=== PATIENT | male | born 2000 | race Caucasian/White ===

== ENCOUNTER 2023-03-08 00:04 | Emergency (ER) | payer MEDICAID, SELFPAY ==
[2023-03-08 00:26] VITALS: BP 106/65; PULSE 86; RESP 18; TEMP 36.7; O2SAT 99; BMI 30.2
[2023-03-08 00:59] VITALS: BP 125/61; PULSE 71; RESP 16; TEMP 36.6; O2SAT 99
--- NOTE | 2023-03-08 01:18 | ED_ITS ---
HPI - Skin/Abscess/Foreign Bdy General Chief complaint: Skin/Abscess/Foreign Body Stated complaint: Cyst on buttocks Time Seen by Provider: 03/08/23 01:07 Source: patient Mode of arrival: ambulatory Limitations: no limitations History of Present Illness HPI narrative: 22-year-old male who presents emergency department for evaluation of pain to his right buttocks area. Patient states that he has noticed pain to his right butt cheek for approximately 2 days. The pain is gotten progressively worse to the point where he is having difficulty sitting. He denied systemic symptoms such as fever, chills, fatigue, nausea, or vomiting. The patient states that he had similar pain approximately 1 year prior and had to have an abscess drained at [facility]. Related Data Previous Rx's Medication Instructions Recorded acetaminophen 500 mg tablet 1,000 mg (2 x 500 mg) PO Q6H PRN 03/08/23 (Tylenol Extra Strength) fever or pain #20 tabs ibuprofen 400 mg tablet 400 mg PO TID PRN fever or pain 03/08/23 #30 tabs oxycodone 5 mg tablet 5 mg PO Q6H PRN pain #10 tabs 03/08/23 Allergies Allergy/AdvReac Type Severity Reaction Status Date / Time No Known Allergies Allergy Verified 03/08/23 00:25 Review of Systems Review of Systems: Yes all other systems are reviewed and are negative [facility] Past Medical History [facility] Narrative: Past medical history: None Social History Social History Alcohol intake: current Alcohol intake frequency: a few times a week Smoked in Last 30 Days: Yes Use of substances other than those prescribed or required for medical reasons: Yes Substance Use Type: Marijuana Physical Exam Vital Signs: Vital Signs: Last Vital Signs Temp 97.9 F 03/08/23 00:59 Pulse 71 03/08/23 00:59 Resp 16 03/08/23 00:59 BP 125/61 03/08/23 00:59 Pulse Ox 99 03/08/23 00:59 O2 Del Method Room Air 03/08/23 00:59 BMI result Body Mass Index 30.2 Vital signs were no Exam General: Awake, alert in no distress Skin: Patient has a circular area to his right buttock measuring approximately 3 cm in diameter, this area is warm to touch and indurated, there is no flocculence Psych: Pleasant, cooperative Medical Decision Making Medical Decision Making MDM Narrative: 22-year-old male who presents emergency department for evaluation of pain in the right buttocks area x2 days, patient had similar abscess which required drainage. Patient has had no systemic symptoms. On examination the patient has a 3 cm circular lesion right buttocks area which is indurated and not flocculent. Patient's presentation is consistent with cellulitis versus early abscess. The patient was started on Keflex 500 mg 4 times a day for 7 days, ibuprofen, Tylenol and oxycodone. Patient was given his 1st dose of Keflex 500 mg orally, ibuprofen 400 mg orally and oxycodone 5 mg orally here in the emergency department. He was given printed and verbal instructions and discharged home. Patient was also given a work note. Differential Diagnosis Differential Diagnoses: The differential diagnosis associated with the presentation includes Differential diagnosis includes was not limited to cellulitis, early abscess, abscess Discharge Plan Discharge Clinical Impression: Cellulitis Patient Disposition: Home, Self-Care Instructions: Cellulitis (ED) Additional Instructions: At this time, I believe that you have a skin infection on your right buttocks area but I do not think that you have an abscess that needs to be cut into and drained. Apply heating pad on low, hot hot comp or soak in the bathtub for least 15 minutes 4 to 6 times a day help increase the blood flow to the area of infection and help the healing process. Take Keflex (cephalexin) 500 mg pills, 1 pill 4 times a day for 7 days. Take ibuprofen IV mg pills, 1 pills every 6 hours as needed for pain. Take Tylenol (acetaminophen) 500 mg pills, 2 pills every 4-6 hours as needed for pain. For pain not relieved by ibuprofen or Tylenol take oxycodone 5 mg pills, 1 pill every 4 hours as needed for pain. Do not drive or work while taking this medication since they can cause sleepiness. Oxycodone is a narcotic medication that can be addicting. If you are concerned about addiction you can ask the pharmacist for less pills or do not get this prescription filled. Follow-up with your doctor in 2 days. Please return to the emergency department if your symptoms get worse or if you develop any symptoms that are concerning to you. Please see the work note Prescriptions: New ibuprofen 400 mg tablet 400 mg PO TID PRN (Reason: fever or pain) Qty: 30 0RF oxycodone 5 mg tablet 5 mg PO Q6H PRN (Reason: pain) Qty: 10 0RF Rx Instructions: Patient may request partial refill; Partial Fill upon patient request. acetaminophen [Tylenol Extra Strength] 500 mg tablet 1,000 mg PO Q6H PRN (Reason: fever or pain) Qty: 20 0RF Stand Alone Forms: Work/School Release
[2023-03-08] MEDS: oxyCODONE HCl Immed Release 5 MG TABLET PO (01:39)
[2023-03-08] MEDS: Ibuprofen 400 MG TABLET PO (01:40)
[2023-03-08] MEDS: cephALEXin 500 MG CAPSULE PO (01:40)
[2023-03-08 03:00] VITALS: BP 122/76; PULSE 81; RESP 16; O2SAT 99
== END 2023-03-08 03:25 | disposition home or self-care (01) ==
PROVIDERS: Emergency Provider Emergency Medicine Emergency Medical Services
DX: L03.317 Cellulitis of buttock (principal)
CPT/HCPCS: 99283; 99284

== ENCOUNTER 2023-03-10 15:37 | Emergency (ER) | payer MEDICAID, SELFPAY ==
[2023-03-10 16:04] VITALS: BP 114/69; PULSE 104; RESP 20; TEMP 36.9; O2SAT 98; BMI 30.8
--- NOTE | 2023-03-10 16:04 | ED_ITS ---
HPI - Skin/Abscess/Foreign Bdy General Chief complaint: Skin/Abscess/Foreign Body Stated complaint: seen two days ago cysts Related Data Previous Rx's Medication Instructions Recorded acetaminophen 500 mg tablet 1,000 mg (2 x 500 mg) PO Q6H PRN 03/08/23 (Tylenol Extra Strength) fever or pain #20 tabs cephalexin 500 mg capsule 500 mg PO QID 7 days #28 caps 03/08/23 ibuprofen 400 mg tablet 400 mg PO TID PRN fever or pain 03/08/23 #30 tabs oxycodone 5 mg tablet 5 mg PO Q6H PRN pain #10 tabs 03/08/23 Allergies Allergy/AdvReac Type Severity Reaction Status Date / Time No Known Allergies Allergy Verified 03/08/23 00:25 [facility] Social History Social History Alcohol intake: current Alcohol intake frequency: a few times a week Substance Use Type: Marijuana Physical Exam Vital Signs: Vital Signs: Last Vital Signs Temp 98.4 F 03/10/23 16:04 Pulse 104 H 03/10/23 16:04 Resp 20 03/10/23 16:04 BP 114/69 03/10/23 16:04 Pulse Ox 98 03/10/23 16:04 O2 Del Method Room Air 03/10/23 16:04 BMI result Body Mass Index 30.8 Course Course Course Narrative: RME - 22 yo male who was recently seen here on 03/08 for right buttock cellulitis discharged on Keflex who presents back to the ER for evaluation of worsening pain and swelling. Pain w/ sitting, unable to sleep. Area is now fluctuant w/ worsening erytham and ready to be drained Plan: I&D in C Reevaluation(s) Reevaluation #1: patient left without completing treatment Time: 17:50 Discharge Plan Discharge Clinical Impression: Abscess of skin or subcutaneous tissue Qualifiers: Site of cutaneous abscess: buttock Qualified Code(s): L02.31 - Cutaneous abscess of buttock Patient Disposition: Left W/O Completing Treatment Prescriptions: No Action ibuprofen 400 mg tablet 400 mg PO TID PRN (Reason: fever or pain) Qty: 30 0RF oxycodone 5 mg tablet 5 mg PO Q6H PRN (Reason: pain) Qty: 10 0RF Rx Instructions: Patient may request partial refill; Partial Fill upon patient request. acetaminophen [Tylenol Extra Strength] 500 mg tablet 1,000 mg PO Q6H PRN (Reason: fever or pain) Qty: 20 0RF cephalexin 500 mg capsule 500 mg PO QID 7 Days Qty: 28 0RF
== END 2023-03-10 18:09 | disposition left against medical advice (07) ==
PROVIDERS: Emergency Provider Emergency Medicine
DX: L02.31 Cutaneous abscess of buttock (principal)
CPT/HCPCS: 10060; 99281; 99284

== ENCOUNTER 2023-03-10 18:37 | Emergency (ER) | payer MEDICAID, SELFPAY ==
[2023-03-10 18:56] VITALS: BP 103/65; PULSE 110; RESP 18; TEMP 37.2; O2SAT 97; BMI 25.9
--- NOTE | 2023-03-10 18:56 | ED_ITS ---
HPI - Skin/Abscess/Foreign Bdy General Chief complaint: Skin/Abscess/Foreign Body Stated complaint: cyst on buttock Time Seen by Provider: 03/10/23 18:55 Source: patient Mode of arrival: ambulatory Limitations: no limitations History of Present Illness HPI narrative: 4 days of increasing buttock pain, seen in the ED recently placed on keflex and doxy, presents now for increasing pain MD complaint: abscess/boil Onset (ago): day(s) Location: buttocks Severity: moderate Quality: sharp and constant Pain Consistency: constant Related Data Previous Rx's Medication Instructions Recorded acetaminophen 500 mg tablet 1,000 mg (2 x 500 mg) PO Q6H PRN 03/08/23 (Tylenol Extra Strength) fever or pain #20 tabs cephalexin 500 mg capsule 500 mg PO QID 7 days #28 caps 03/08/23 ibuprofen 400 mg tablet 400 mg PO TID PRN fever or pain 03/08/23 #30 tabs oxycodone 5 mg tablet 5 mg PO Q6H PRN pain #10 tabs 03/08/23 doxycycline hyclate 100 mg tablet 100 mg PO BID #14 tabs 03/10/23 Allergies Allergy/AdvReac Type Severity Reaction Status Date / Time No Known Allergies Allergy Verified 03/08/23 00:25 Review of Systems Review of Systems: Yes all other systems are reviewed and are negative Neurologic: Denies Sensory deficit (Neuro) [facility] Social History Social History Alcohol intake: current Alcohol intake frequency: a few times a week Substance Use Type: Marijuana Advance Directives: No Advance Directives Information Provided: No Physical Exam Vital Signs: Vital Signs: Last Vital Signs Temp 98.9 F 03/10/23 18:56 Pulse 110 H 03/10/23 18:56 Resp 18 03/10/23 18:56 BP 103/65 03/10/23 18:56 Pulse Ox 97 03/10/23 18:56 O2 Del Method Room Air 03/10/23 18:56 BMI result Body Mass Index 25.9 Const: General: healthy appearing Nutritional Appearance: average body habitus Orientation/consciousness: oriented to person and patient oriented x3 Limitations: no limitations HEENT: Head: Yes normal to inspection Ears: external ears normal General nose exam: Normal external nose present Mouth: Normal oral and palatal mucosa present and oropharynx normal Throat: Yes posterior oropharynx normal Eyes: General: appearance normal, both eyes and all related structures Neck: Other: supple Neck: Yes normal visual inspection Chest: Chest palpation & inspection: normal inspection of the chest Resp: Auscultation: clear to auscultation bilaterally Cardio: Jugular venous distension: no JVD Rate: regular rate Rhythm: regular rhythm Heart sounds: S1 normal heart sound present and S2 normal heart sound present GI: Inspection: Yes normal to inspection Palpation (GI): Soft to palpation, nontender and No hepatosplenomegaly present Auscultation: normal bowel sounds : Other: right buttock with swelling and erythema with an area of induration and fluctuance Skin: General skin exam: no rashes or lesions noted Neuro: General: oriented to person and patient oriented x3 Cranial nerves: Yes CN's II-XII intact bilaterally Motor exam (neuro): 5/5 motor strength present throughout Sensory Exam: No Sensory deficit (Neuro) Extrem: General: Yes normal to inspection Psych: Appearance: grossly normal Course Course Course Narrative: RME - 22 y/o male presenting with worsening right buttock pain and redness. Seen here 03/08 and given keflex and pain control, was not fluctuant at the time. Area now fluctuant and amenable to I&D today. Plan: I&D, add MRSA coverage given worsening cellulitis on abx Reevaluation(s) Reevaluation #1: Patient with large abscess drained, packing placed Time: 21:53 Medical Decision Making Differential Diagnosis Differential Diagnoses: The differential diagnosis associated with the presentation includes (abscess, cellulitis) Independent Interpretation I performed an independent interpretation of an: Ultrasound (bedside ultrasound performed by me shows large abscess) Tests considered The following testing was considered but not selected: CT of buttock considered but patient afebrile and non toxic Prescription Management I considered prescription management with: Antibiotic (will have patient finish out keflex and doxycycline) Procedures Procedure Narrative Procedure Narrative: Patient prepped and draped in sterile fashion. !% epi with lidocaine used for anesthesia. 11 blade used, pus removed, packing placed. Patient tolerated procedure well Discharge Plan Discharge Clinical Impression: Abscess of skin or subcutaneous tissue Qualifiers: Site of cutaneous abscess: buttock Qualified Code(s): L02.31 - Cutaneous abscess of buttock Patient Disposition: Home, Self-Care Instructions: Abscess Incision and Drainage (DC) Additional Instructions: remove packing in 48 hours Prescriptions: New doxycycline hyclate 100 mg tablet 100 mg PO BID Qty: 14 0RF No Action ibuprofen 400 mg tablet 400 mg PO TID PRN (Reason: fever or pain) Qty: 30 0RF oxycodone 5 mg tablet 5 mg PO Q6H PRN (Reason: pain) Qty: 10 0RF Rx Instructions: Patient may request partial refill; Partial Fill upon patient request. acetaminophen [Tylenol Extra Strength] 500 mg tablet 1,000 mg PO Q6H PRN (Reason: fever or pain) Qty: 20 0RF cephalexin 500 mg capsule 500 mg PO QID 7 Days Qty: 28 0RF Referrals: Physician,None [Primary Care Provider] - 1 week
[2023-03-10] MEDS: Doxycycline Monohydrate 100 MG CAPSULE PO (21:56)
[2023-03-10] MEDS: Lidocaine HCl 1%/Epi 1:100,000 10 ML VIAL INFILTRATI (21:57)
[2023-03-10] MEDS: oxyCODONE HCl Immed Release 5 MG TABLET PO (21:57)
[2023-03-10] MEDS: cephALEXin 500 MG CAPSULE PO (21:57)
[2023-03-10] MEDS: Ondansetron ODT 4 MG TAB.RAPDIS TRANSLINGU (22:02)
--- NOTE | 2023-03-10 22:12 | PC.NURSE ---
Pt ca&ox4, no signs of distress. Pt speaking on the phone with gf. Pt medicated per jul. Per provider 2nd lidocaine order in jul not required. Pt report nausea, provider made aware and given zofran Pts wound clean and bandaged per provider. Plan of care ongoing.
== END 2023-03-10 22:22 | disposition home or self-care (01) ==
PROVIDERS: Emergency Provider Emergency Medicine
DX: L02.31 Cutaneous abscess of buttock (principal); Z79.899 Other long term (current) drug therapy
CPT/HCPCS: 10060; 99281; 99283; 99284

== ENCOUNTER 2023-05-28 02:09 | Emergency (ER) | payer MEDICAID, SELFPAY ==
[2023-05-28 02:39] VITALS: BP 120/52; PULSE 75; RESP 20; TEMP 36.1; O2SAT 98; BMI 29.0
[2023-05-28 04:17] VITALS: BP 120/71; PULSE 87; RESP 17; TEMP 36.6; O2SAT 96
--- NOTE | 2023-05-28 07:13 | ED.SKABFB ---
HPI - Skin/Abscess/Foreign Bdy General Chief complaint: Skin/Abscess/Foreign Body Stated complaint: cyst? Time Seen by Provider: 05/28/23 07:02 Source: patient Mode of arrival: ambulatory Limitations: no limitations History of Present Illness HPI narrative: 22-year-old male presents with a cyst on his left buttocks ongoing for the past week or so worsening. He has a history of this in the past. Reports he has been trying to take warm showers and it is not helping. Reports severe pain 03/02 . Denies fevers, chills, numbness, tingling, changes in urinary or bowel habits, chest pain and shortness of breath Related Data Previous Rx's Medication Instructions Recorded acetaminophen 500 mg tablet 1,000 mg (2 x 500 mg) PO Q6H PRN 03/08/23 (Tylenol Extra Strength) fever or pain #20 tabs cephalexin 500 mg capsule 500 mg PO QID 7 days #28 caps 03/08/23 ibuprofen 400 mg tablet 400 mg PO TID PRN fever or pain 03/08/23 #30 tabs oxycodone 5 mg tablet 5 mg PO Q6H PRN pain #10 tabs 03/08/23 doxycycline hyclate 100 mg tablet 100 mg PO BID #14 tabs 03/10/23 cephalexin 500 mg tablet 500 mg PO Q6H 10 days #40 tabs 05/28/23 doxycycline hyclate 100 mg capsule 100 mg PO BID 10 days #20 caps 05/28/23 oxycodone 5 mg tablet 5 mg PO BID PRN pain #10 tabs 05/28/23 Allergies Allergy/AdvReac Type Severity Reaction Status Date / Time No Known Allergies Allergy Verified 03/08/23 00:25 Review of Systems Review of Systems: Yes all other systems are reviewed and are negative PMFSH Past Medical History Attestation statement: The following information was validated with the patient. Source: old records reviewed and nursing notes reviewed Onset Date is defined in the Problem List Problems that require an onset date and time if occurred within 24 hrs of arrival to the ED Aortic Dissection and Rupture; Neurologic impairment; Cardiopulmonary Arrest; Endotracheal Intubation; Insertion or Replacement of Mechanical Circulatory Assist Device Social History Social History Alcohol intake: current Alcohol intake frequency: a few times a week Smoked in Last 30 Days: Yes Use of substances other than those prescribed or required for medical reasons: No Substance Use Type: Marijuana Advance Directives: No Advance Directives Information Provided: No Physical Exam Vital Signs: Vital Signs: Last Vital Signs Temp 97.9 F 05/28/23 04:17 Pulse 87 05/28/23 04:17 Resp 17 05/28/23 04:17 BP 120/71 05/28/23 04:17 Pulse Ox 96 05/28/23 04:17 O2 Del Method Room Air 05/28/23 04:17 BMI result Body Mass Index 29.0 vss Appearance: Alert.? Oriented X3.? No acute distress.? patient extremely anxious Head: Normocephalic, atraumatic, no step-offs or deformities Eyes: Pupils equal, round and reactive to light.? CVS: Pulses normal.? Respiratory: No respiratory distress Skin: Skin warm and dry.? Normal skin color.? Normal skin turgor.? + 4 cm X 2 cm indurated area w/ small area of central fluctuance. Overlying erythema and warmth Extremities: No lower extremity edema.? No calf ttp. 5/5 strength to bilateral upper and lower extremities Back: No midline tenderness, no C-spine tenderness, full range of motion, no CVA tenderness bilaterally Neuro: Oriented X 3.? No motor deficit.? No sensory deficit. CN 2-12 intact Course Reevaluation(s) Reevaluation #1: started to do incision and drainage in patient reports pain is intolerable, he would not like to proceed with the procedure, initially did give verbal consent, however he changes mind and said he would just like to take antibiotics and come back in a few days. I respect patient's decision. Patient to return in 2 days. Educated patient on diagnosis and treatment plan, answered all question, patient verbalizes understanding. At this time patient will be discharged home, advised to return with new or worsening symptoms. Educated on worrisome signs and symptoms and when to return. At this time I feel comfortable discharge home. Time: 07:49 Medications Administered Discontinued Medications Generic Name Dose Route Start Last Admin Trade Name Freq PRN Reason Stop Dose Admin Acetaminophen 650 mg 05/28/23 06:59 05/28/23 07:04 Acetaminophen 325 Mg Tablet PO 05/28/23 07:00 650 mg ONCE ONE Administration Medical Decision Making Medical Decision Making [facility] Narrative: 22-year-old male presents with abscess to left buttocks for the past few days worsen history of this physical exam + 4 cm X 2 cm indurated area w/ small area of central fluctuance. Overlying erythema and warmth history and physical exam concerning for developing abscess with overlying cellulitis. Unlikely necrotizing infection no signs of Fourniers. Plan- I&D Differential Diagnosis Differential Diagnoses: The differential diagnosis associated with the presentation includes history and physical exam concerning for developing abscess with overlying cellulitis. Unlikely necrotizing infection no signs of Fourniers. Admission/Observation Consideration of admission/observation: Escalation of care including admission/observation considered unlikely Prescription Management I considered prescription management with: Antibiotic Discharge Plan Discharge Clinical Impression: Abscess of buttock, left Patient Disposition: Home, Self-Care Instructions: Abscess (ED), Abscess Follow-up (ED) Additional Instructions: Take your medications as prescribed. If you were prescribed antibiotics today, it is important that you take your medication to their entirety, do not skip any doses, do not finish them early. Follow-up with your primary care provider this week. Return to the emergency department with new or worsening symptoms. Such as fevers, chills, chest pain, shortness of breath, nausea, vomiting, dizziness, headache, vision changes, lethargy In case of emergency call 911 A narcotic has been sent to your pharmacy please take this as prescribed. Do not take more than the prescribed dose. Narcotic medications can cause addiction. Please do not mix them with alcohol. Do not take them while driving or operating machinery. Do not take them with any other narcotics. Do not share them with friends or family. They can cause constipation. Take them only for severe pain. please soak with water and Epsom salt return in 2 days for wound check Prescriptions: New doxycycline hyclate 100 mg capsule 100 mg PO BID 10 Days Qty: 20 0RF cephalexin 500 mg tablet 500 mg PO Q6H 10 Days Qty: 40 0RF oxycodone 5 mg tablet 5 mg PO BID PRN (Reason: pain) Qty: 10 0RF Rx Instructions: Partial Fill upon patient request. No Action doxycycline hyclate 100 mg tablet 100 mg PO BID Qty: 14 0RF ibuprofen 400 mg tablet 400 mg PO TID PRN (Reason: fever or pain) Qty: 30 0RF oxycodone 5 mg tablet 5 mg PO Q6H PRN (Reason: pain) Qty: 10 0RF Rx Instructions: Patient may request partial refill; Partial Fill upon patient request. acetaminophen [Tylenol Extra Strength] 500 mg tablet 1,000 mg PO Q6H PRN (Reason: fever or pain) Qty: 20 0RF cephalexin 500 mg capsule 500 mg PO QID 7 Days Qty: 28 0RF Referrals: Physician,Unknown J [Primary Care Provider] - 2 days
--- NOTE | 2023-05-28 08:03 | MHC.EDTECH ---
Vitals upon D/C @0803: Temp: 98.9 oral BP: 134/76 R arm P: 78 O2:97% Rm air R: 18
== END 2023-05-28 08:02 | disposition home or self-care (01) ==
PROVIDERS: Emergency Provider Student in an Organized Health Care Education/Training Program
DX: L02.31 Cutaneous abscess of buttock (principal)
CPT/HCPCS: 10060; 99284

== ENCOUNTER 2023-05-29 16:55 | Emergency (ER) | payer MEDICAID, SELFPAY ==
[2023-05-29 17:05] VITALS: BP 132/78; PULSE 112; O2SAT 99
[2023-05-29 18:08] VITALS: BP 104/61; PULSE 118; RESP 18; TEMP 36.8; O2SAT 97; BMI 27.3
--- NOTE | 2023-05-29 19:26 | ED.GENADULT ---
HPI - General Adult General Chief complaint: Skin/Abscess/Foreign Body Stated complaint: RE-EVAL FOR CYST ON GLUTE Time Seen by Provider: 05/29/23 19:00 Source: patient, RN notes reviewed and old records reviewed Mode of arrival: ambulatory Limitations: no limitations History of Present Illness HPI narrative: 22-year-old male presents for evaluation abscess to his left side buttocks he reports that the symptoms started about 4 days ago He reports that he tried to go to [facility] a few days ago but I waited for 36 hours. He was seen here yesterday he reports that the provider attempted to do I and D but then told him it is too firm to be drained today. He was given cephalexin and doxycycline and discharged home patient reports his symptoms have worsened denies any fevers or chills his pain is 10 Related Data Previous Rx's Medication Instructions Recorded acetaminophen 500 mg tablet 1,000 mg (2 x 500 mg) PO Q6H PRN 03/08/23 (Tylenol Extra Strength) fever or pain #20 tabs cephalexin 500 mg capsule 500 mg PO QID 7 days #28 caps 03/08/23 ibuprofen 400 mg tablet 400 mg PO TID PRN fever or pain 03/08/23 #30 tabs oxycodone 5 mg tablet 5 mg PO Q6H PRN pain #10 tabs 03/08/23 doxycycline hyclate 100 mg tablet 100 mg PO BID #14 tabs 03/10/23 cephalexin 500 mg tablet 500 mg PO Q6H 10 days #40 tabs 05/28/23 doxycycline hyclate 100 mg capsule 100 mg PO BID 10 days #20 caps 05/28/23 oxycodone 5 mg tablet 5 mg PO BID PRN pain #10 tabs 05/28/23 Allergies Allergy/AdvReac Type Severity Reaction Status Date / Time No Known Allergies Allergy Verified 05/29/23 18:08 Review of Systems Constitutional: Constitutional: Denies chills and Denies fever(s) Integumentary/Breasts: Skin/Breast: Reports erythema, Reports skin pain and Reports skin swelling PMFSH Social History Social History Alcohol intake: current Alcohol intake frequency: a few times a week Substance Use Type: Marijuana Advance Directives: No Advance Directives Information Provided: No Physical Exam ED Vital Signs: Vital Signs - 24 hr 05/29/23 18:08 Temperature 98.3 F Pulse Rate 118 H Respiratory Rate 18 Blood Pressure 104/61 Pulse Oximetry 97 Oxygen Delivery Method Room Air BMI result Body Mass Index 27.3 Const General: healthy appearing, comfortable, no acute distress, alert and awake Nutritional Appearance: well nourished Orientation/consciousness: patient oriented x3 HENMT Head: Yes normocephalic and Yes atraumatic Eyes Eyelids: Yes eyelids normal Conjunctivae: conjunctivae normal Sclerae: sclerae normal Corneas: corneas normal EOM: EOMs intact bilaterally Neck Neck: Yes full ROM Skin Other: patient has a 5 x 3 cm area of fluctuance with some induration to the left gluteal cleft. This area is exquisitely tender palpation. there is minimal surrounding Erythema.. The erythema and induration does not extend down towards the perineum. General skin exam: elasticity normal Neuro General: patient oriented x3 Cranial nerves: Yes Bilaterally intact EOM present Cognition (Neuro): normal cognition Extrem Other: Moving all extremities well without any obvious deformities Medications Administered Discontinued Medications Generic Name Dose Route Start Last Admin Trade Name Freq PRN Reason Stop Dose Admin Lidocaine/Epinephrine 10 ml 05/29/23 19:02 05/29/23 19:53 Lidocaine Hcl 1%/Epi 1:100,000 10 Ml Vial INFILTRATI 05/29/23 19:03 10 ml ONCE ONE Administration Morphine Sulfate 4 mg 05/29/23 19:02 05/29/23 19:53 Morphine Sulfate 4 Mg/Ml Cartridge IM 05/29/23 19:03 4 mg ONCE ONE Administration Protocol Ondansetron HCl 4 mg 05/29/23 19:02 05/29/23 19:53 Ondansetron Odt 4 Mg Tab.Rapdis TRANSLINGU 05/29/23 19:03 4 mg ONCE ONE Administration Procedures Abscess I/D Site: other ( left buttocks) Side (if applicable): left Local Anesthetic: lidocaine 1% and with epi Amount of anesthesia used (mL): 5 Technique: incised with blade Amount of fluid expressed (mL): 20 Sent for culture/gram staining?: No Irrigation: Yes Packing used?: none ( patient declined any packing) Medical Decision Making Medical Decision Making MDM Narrative: 22-year-old male presents for evaluation abscess to his left gluteal cleft. This appears amenable to incision and drainage. See procedure note. The patient has already a prescribed antibiotics which she may continue Differential Diagnosis Differential Diagnoses: The differential diagnosis associated with the presentation includes abscess Cellulitis Sebaceous cyst sepsis. Discharge Plan Discharge Clinical Impression: Abscess of skin or subcutaneous tissue Patient Disposition: Home, Self-Care Instructions: Abscess (ED) Additional Instructions: Continue taking your antibiotics as prescribed continue using the warm compresses follow-up with your primary doctor return for new or worsening symptoms Prescriptions: No Action doxycycline hyclate 100 mg tablet 100 mg PO BID Qty: 14 0RF doxycycline hyclate 100 mg capsule 100 mg PO BID 10 Days Qty: 20 0RF cephalexin 500 mg tablet 500 mg PO Q6H 10 Days Qty: 40 0RF oxycodone 5 mg tablet 5 mg PO BID PRN (Reason: pain) Qty: 10 0RF Rx Instructions: Partial Fill upon patient request. ibuprofen 400 mg tablet 400 mg PO TID PRN (Reason: fever or pain) Qty: 30 0RF oxycodone 5 mg tablet 5 mg PO Q6H PRN (Reason: pain) Qty: 10 0RF Rx Instructions: Patient may request partial refill; Partial Fill upon patient request. acetaminophen [Tylenol Extra Strength] 500 mg tablet 1,000 mg PO Q6H PRN (Reason: fever or pain) Qty: 20 0RF cephalexin 500 mg capsule 500 mg PO QID 7 Days Qty: 28 0RF
== END 2023-05-29 20:56 | disposition home or self-care (01) ==
PROVIDERS: Emergency Provider Emergency Medicine
DX: L02.31 Cutaneous abscess of buttock (principal)
CPT/HCPCS: 10060; 96372; 99282; 99284; J2270